=== PATIENT | female | born 1950 | race Caucasian/White ===

== ENCOUNTER → 2020-07-06 11:30 | Outpatient (BNVA) | payer MEDICARE, SELFPAY | PROVIDERS: Family Provider Registered Nurse; Visit Provider Registered Nurse | DX: I10 Essential (primary) hypertension (principal); E78.5 Hyperlipidemia, unspecified | CPT/HCPCS: 80053; 80061; 85025 ==

== ENCOUNTER → 2021-07-09 10:42 | Outpatient (BNVA) | payer MEDICARE, SELFPAY | PROVIDERS: Family Provider Registered Nurse; PCP Registered Nurse; Visit Provider Registered Nurse | DX: I10 Essential (primary) hypertension (principal) | CPT/HCPCS: 80053; 80061; 85025 ==

== ENCOUNTER → 2021-08-12 08:56 | Outpatient (BNVA) | payer MEDICARE, SELFPAY | PROVIDERS: Family Provider Registered Nurse; PCP Registered Nurse; Visit Provider Internal Medicine | DX: Z01.812 Encounter for preprocedural laboratory examination (principal); Z20.822 Contact with and (suspected) exposure to COVID-19; Z86.010 Personal history of colon polyps | CPT/HCPCS: 87635 ==

== ENCOUNTER 2021-08-16 06:14 | Day surgery (SDC) | payer MEDICARE, SELFPAY ==
[2021-08-14 14:20] VITALS: BMI 45.9
[2021-08-16 06:44] VITALS: BP 179/94; PULSE 71; RESP 18; TEMP 36.1; O2SAT 97
--- NOTE | 2021-08-16 06:44 | ANES.PREANE2 ---
Pre-Anesthetic Assessment Pre-Anesthetic Assessment: Height/Weight: Height 1.78 m Weight 145.15 kg Preop Diagnosis: His polyps Proposed Procedure: Operation Date: 08/16/21 07:00 Proposed Procedures p Colonoscopy G0105 Z86.010(Not Applicable) - Fuad Burris MD Was Beta Deepthi taken within 24 hours: N/A Was Clonidine taken within 24 hours: N/A Last intake: Intake Last Liquid Date 08/15/21 Last Liquid Time 16:00 Last Solid Date 08/14/21 Last Solid Time 16:00 Social: Social History: No alcohol and No tobacco Exam: Pre-Anes Outpt Exam: alert and oriented x 3 Airway: Submandibular: WNL Cervical ROM: WNL MP: 3 Dentition: Chipped (front bottom) and Loose (back molar) Additional comments: missing front top History/ROS: No significant history except as noted Pulmonary: Comments: pt reports nasal drainage which she uses nasal spray for. CV/HEM: CV/HEM: None reported : : None reported Hepatic: Hepatic: None reported GI: GI: GERD Metabolic: Metabolic: Morbid obesity Musc/skel: Musc/skel: None reported Neuropsych: Neuropsych: None reported Anesthetic Plan: ASA status: 2E Anesthesia: Anesthesia Evaluation and MAC Risk of > 500 ml blood loss (7ml/kg in children): No PFSH Anesthesia PFSH: Medical History GERD without esophagitis Hypertension Family History Other Cancer Diabetes Hypertension Social History Smoking and tobacco status: former smoker Alcohol intake: never Adopted: No Caregiver/support person: No Lives independently: No Household members: spouse Marital status: Current occupational status: retired History of recent travel: No Sexually active: Yes Current gender identity: Male Data Anesthesia Cardiac Studies: No Data to Display
[2021-08-16] MEDS: sodium chloride 0.9% 1,000 ML 30 ML IV (06:51)
--- NOTE | 2021-08-16 06:55 | P.HP_ITS ---
Same Day Surgery H&P Indication for Procedure/HPI DATE OF PROCEDURE: August 16, 2021 CHIEF COMPLAINT/INDICATIONFOR SURGICAL PROCEDURE: History of colon polyp PREOP DIAGNOSIS: His polyps PLANNED PROCEDRUE: Operation Date: 08/16/21 07:00 Proposed Procedures p Colonoscopy G0105 Z86.010(Not Applicable) - Fuad Burris MD Medications/Allergies* Home Medications Medication Instructions Recorded Confirmed Type losartan 100 mg PO DAILY 08/14/21 08/14/21 History Claritin 10 mg PO DAILY 08/16/21 08/16/21 History Allergies/Adverse Reactions Allergy/AdvReac Type Severity Reaction Status Date / Time codeine Allergy Unknown Verified 07/24/21 14:29 Current Medications: Generic Name Dose Route Start Last Admin Trade Name Freq PRN Reason Stop Dose Admin Sodium Chloride 1,000 mls @ 30 mls/hr 08/16/21 06:30 08/16/21 06:51 Sodium Chloride 0.9% IV 30 mls/hr .Q24H KELLE Administration Pertinent History/Comorbid Conditions* Medical History (Updated 07/24/21 @ 14:56 by Fuad Burris MD) GERD without esophagitis Hypertension Family History (Updated 07/06/20 @ 10:55 by Karla Beltrán LPN) Diabetes Cancer Hypertension Social History Smoking and tobacco status: former smoker Alcohol intake: never Adopted: No Caregiver/support person: No Lives independently: No Household members: spouse Marital status: Current occupational status: retired History of recent travel: No Sexually active: Yes Current gender identity: Male Pertinent Exam Findings alert, oriented x 3, clear to auscultation bilaterally, regular rate & rhythm, operative site marked and procedure specific exam findings Recommendations Surgery/Procedure today Coding Level of Care Code Acute Teacher Of The Sight Impaired for Marisela Gomez
[2021-08-16 07:17] VITALS: BP 153/85; PULSE 66; RESP 15; TEMP 36.1; O2SAT 94
[2021-08-16 07:29] VITALS: BP 129/87; PULSE 65; RESP 18; O2SAT 94
--- NOTE | 2021-08-16 10:38 | ANE.PACU2 ---
Inpatient post-anesthesia follow up: Airway intact: Yes Vital signs: Temperature 97 F Pulse Rate 65 Respiratory Rate 18 Blood Pressure 129/87 Pulse Oximetry 94 Oxygen Delivery Me thod Room Air Oxygen Flow Rate Fraction of Inspir ed Oxygen Hydration adequate: Yes Nausea and vomiting: No Pain level: 1 Mental status: Baseline
== END 2021-08-16 07:50 | disposition home or self-care (01) ==
PROVIDERS: PCP Registered Nurse; Visit Provider Internal Medicine
PROC: 0DJD8ZZ Inspection of Lower Intestinal Tract, Via Natural or Artificial Opening Endoscopic (ICD-10-PCS; CPT 45378; principal; 2021-08-16 07:00)
DX: Z12.11 Encounter for screening for malignant neoplasm of colon (principal); Z86.010 Personal history of colon polyps; D12.3 Benign neoplasm of transverse colon; E66.01 Morbid (severe) obesity due to excess calories; Z68.42 Body mass index [BMI] 45.0-49.9, adult; K21.9 Gastro-esophageal reflux disease without esophagitis; I10 Essential (primary) hypertension; Z87.891 Personal history of nicotine dependence
CPT/HCPCS: 45385; 88305; 96360; J2704; J7030

== ENCOUNTER → 2021-12-24 14:31 | Outpatient (BNVA) | payer MEDICARE, SELFPAY | PROVIDERS: PCP Registered Nurse; Visit Provider Registered Nurse | DX: B02.9 Zoster without complications (principal); L03.115 Cellulitis of right lower limb | CPT/HCPCS: 85025 ==

== ENCOUNTER 2022-01-21 08:39 | Outpatient (CLI) | payer MEDICARE, SELFPAY ==
--- NOTE | 2022-01-21 09:15 | USCV_ITS ---
Mae Lee Age: 71 Gender: F : 1950 Exam Date: 01/21/2022 08:59 Ordering Phys: Lindy Briceno [employer] Technologist: LORIN [place] [facility] [place]: Peripheral vascular disease Risk Factors: Previous Vascular Surgery: RIGHT LEFT BP: 114.0 / 75.00 BP: 112.0/ 70.00 0 0 Waveform Velocity (cm/s) Velocity (cm/s) Waveform Triphasic 91.7 Iliac Prox 77.6 Triphasic Triphasic 77.3 Iliac Mid 102.0 Triphasic Triphasic 97.3 Iliac Distal 86.3 Triphasic Triphasic 57.6 CYBER INCIDENT ANALYST 73.4 Triphasic Biphasic 84.7 SFA Prox 74.2 Triphasic Biphasic 95.8 SFA Mid 96.7 Triphasic Biphasic SFA Dist Triphasic 97.2 83.6 Biphasic 83.0 POP 58.4 Triphasic Triphasic 131.5 INDUSTRIAL SAFETY AND HEALTH SPECIALIST 90.1 Triphasic Triphasic 68.4 DPA 88.6 Triphasic FINDINGS Pt could not tolerate compression of INDUSTRIAL SAFETY AND HEALTH SPECIALIST and DPAs bilaterally. Normal Doppler flow velocities Normal Doppler waveforms bilaterally Intimal thickening is noted in the iliac and femoral arteries bilaterally CONCLUSIONS No unstable plaques or lesions noted Normal arterial Doppler waveforms and velocities suggesting no significant arterial obstruction bilaterally. CHIDI is could not be obtained . Dr Bobbi Harris MD [facility] (Electronically Signed) Final Date: 24 January 2022 09:40 S
== END 2022-01-21 08:40 | disposition home or self-care (01) ==
LOC: RAD 08:47
PROVIDERS: PCP Registered Nurse; Visit Provider Registered Nurse
DX: I73.9 Peripheral vascular disease, unspecified (principal)
CPT/HCPCS: 93925

== ENCOUNTER → 2022-01-29 10:35 | Outpatient (BNVA) | payer MEDICARE, SELFPAY | PROVIDERS: PCP Registered Nurse; Visit Provider Registered Nurse | DX: R60.0 Localized edema (principal); I10 Essential (primary) hypertension; K21.9 Gastro-esophageal reflux disease without esophagitis | CPT/HCPCS: 83880 ==

== ENCOUNTER → 2022-07-11 11:26 | Outpatient (BNVA) | payer MEDICARE, SELFPAY | PROVIDERS: PCP Registered Nurse; Visit Provider Registered Nurse | DX: Z12.39 Encounter for other screening for malignant neoplasm of breast (principal); I10 Essential (primary) hypertension; Z13.1 Encounter for screening for diabetes mellitus; E78.5 Hyperlipidemia, unspecified; Z23 Encounter for immunization; Z00.00 Encounter for general adult medical examination without abnormal findings | CPT/HCPCS: 80053; 80061; 83036; 85025 ==

== ENCOUNTER → 2022-11-05 11:07 | Outpatient (BNVA) | payer MEDICARE, SELFPAY | PROVIDERS: PCP Registered Nurse; Visit Provider Registered Nurse | DX: E11.9 Type 2 diabetes mellitus without complications (principal) | CPT/HCPCS: 83036 ==

== ENCOUNTER → 2023-04-13 10:23 | Outpatient (BNVA) | payer MEDICARE, SELFPAY | PROVIDERS: PCP Registered Nurse; Visit Provider Registered Nurse | DX: E11.9 Type 2 diabetes mellitus without complications (principal); I10 Essential (primary) hypertension | CPT/HCPCS: 80053; 83036 ==

== ENCOUNTER 2023-05-14 14:00 | Outpatient (CLI) | payer MEDICARE, SELFPAY | END 2023-05-14 14:01 | disposition home or self-care (01) | LOC: SLEEP 05-15 10:38 | PROVIDERS: PCP Registered Nurse; Visit Provider Registered Nurse | DX: G47.33 Obstructive sleep apnea (adult) (pediatric) (principal); K21.9 Gastro-esophageal reflux disease without esophagitis; E66.01 Morbid (severe) obesity due to excess calories; Z68.41 Body mass index [BMI] 40.0-44.9, adult; I10 Essential (primary) hypertension | CPT/HCPCS: G0399 ==

== ENCOUNTER → 2023-07-15 10:48 | Outpatient (BNVA) | payer MEDICARE, SELFPAY | PROVIDERS: PCP Registered Nurse; Visit Provider Registered Nurse | DX: E11.9 Type 2 diabetes mellitus without complications (principal); Z00.00 Encounter for general adult medical examination without abnormal findings; I10 Essential (primary) hypertension | CPT/HCPCS: 80053; 80061; 83036; 85025 ==

== ENCOUNTER 2023-07-30 10:56 | Outpatient (CLI) | payer MEDICARE, SELFPAY ==
--- NOTE | 2023-07-30 11:24 | MM_ITS ---
WS: [id number] SCREENING DIGITAL TOMOSYNTHESIS MAMMOGRAM WITH CAD HISTORY: Z12.39 - Encounter for other screening for malignant neop... COMPARISON: 07/26/2019 Bilateral CC and MLO with tomosynthesis views submitted. Synthetic mammography reviewed. Computer aid ed detection analyzed. Breast composition: There are scattered areas of fibroglandular density. No suspicious masses, microc alcifications or architectural distortion. IMPRESSION: MM/[place] [id number] BI-RADS: 1-Negative FOLLOW UP: 1 Year Follow-up
== END 2023-07-30 10:57 | disposition home or self-care (01) ==
PROVIDERS: PCP Registered Nurse; Visit Provider Registered Nurse
DX: Z12.31 Encounter for screening mammogram for malignant neoplasm of breast (principal)
CPT/HCPCS: 77063; 77067

== ENCOUNTER → 2023-12-22 11:27 | Outpatient (BNVA) | payer MEDICARE, SELFPAY | PROVIDERS: PCP Registered Nurse; Visit Provider Registered Nurse | DX: E11.9 Type 2 diabetes mellitus without complications (principal) | CPT/HCPCS: 80053; 83036 ==

== ENCOUNTER → 2024-08-01 10:03 | Outpatient (BNVA) | payer MEDICARE, SELFPAY | PROVIDERS: PCP Registered Nurse; Visit Provider Registered Nurse | DX: E11.9 Type 2 diabetes mellitus without complications (principal) | CPT/HCPCS: 80053; 80061; 82607; 83036; 85025 ==

== ENCOUNTER 2024-08-17 10:47 | Outpatient (CLI) | payer MEDICARE, SELFPAY ==
--- NOTE | 2024-08-17 10:40 | MM_ITS ---
WS: [id number] BILATERAL SCREENING DIGITAL TOMOSYNTHESIS MAMMOGRAM WITH CAD HISTORY: Z12.39 - Encounter for other screening for malignant neop... COMPARISON: 07/30/2023, 07/26/2019 Bilateral CC and MLO views with tomosynthesis and synthetic mammography submitted. Computer aided det ection analyzed. Breast composition: There are scattered areas of fibroglandular density. No suspicious masses, microc alcifications or architectural distortion. Benign calcifications. MM/MM scr BI tomosynthesis [id number] IMPRESSION: BI-RADS: 2 - Benign. FOLLOW UP: 1 Year Follow-up
== END 2024-08-17 10:48 | disposition home or self-care (01) ==
LOC: MOBLMAM 10:53
PROVIDERS: PCP Registered Nurse; Visit Provider Registered Nurse
DX: Z12.31 Encounter for screening mammogram for malignant neoplasm of breast (principal)
CPT/HCPCS: 77063; 77067

== ENCOUNTER → 2025-03-20 14:10 | Outpatient (BNVA) | payer MEDICARE, SELFPAY | PROVIDERS: PCP Registered Nurse; Visit Provider Registered Nurse | DX: E11.9 Type 2 diabetes mellitus without complications (principal) | CPT/HCPCS: 80053; 83036; 85025 ==

== ENCOUNTER → 2025-08-24 11:11 | Outpatient (BNVA) | payer MEDICARE, SELFPAY | PROVIDERS: PCP Registered Nurse; Visit Provider Registered Nurse | DX: E11.9 Type 2 diabetes mellitus without complications (principal) | CPT/HCPCS: 80053; 82607; 83036; 85025 ==

== ENCOUNTER → 2025-09-19 09:48 | Outpatient (BNVA) | payer MEDICARE, SELFPAY | PROVIDERS: PCP Registered Nurse; Visit Provider Podiatrist Foot & Ankle Surgery | DX: E11.42 Type 2 diabetes mellitus with diabetic polyneuropathy (principal); L60.3 Nail dystrophy; L84 Corns and callosities; G62.9 Polyneuropathy, unspecified; Z79.84 Long term (current) use of oral hypoglycemic drugs | CPT/HCPCS: 11721; 99203 ==